=== PATIENT | male | born 1925 | race Caucasian/White ===

== ENCOUNTER 2017-03-12 21:07 | Emergency (ER) | payer MEDICARE, OTHER ==
[2017-03-12] MEDS ORDERED: Labetalol 20 MG/4 ML Syringe IVPUSH ONE ×2 (21:36→22:13)
--- NOTE | 2017-03-12 21:42 | EDM.PDOC ---
ED HPI GENERAL MEDICAL PROBLEM - General Chief Complaint: Headache Stated Complaint: headache,congintive changes Time Seen by Provider: 03/12/17 21:30 Source of Information: Reports: Patient, [facility] Records History Limitations: Reports: No Limitations - History of Present Illness INITIAL COMMENTS - FREE TEXT/NARRATIVE: Patient is a 89-year-old who [facility] [place] [facility] was brought in by private vehicle with history of headache this started around 3 :30 changes in his cognitive he is alert to time and place but states he has had about 6 falls today in one he hit his chest and head at this time patient was taken to CT scan to rule out C acute stroke patient refused transfer to the hospital earlier in the day Onset: Today Duration: Hour(s): Location: Reports: Head Quality: Reports: Throbbing Severity: Moderate Improves with: Reports: None Worsens with: Reports: None Context: Reports: Sick Contact Associated Symptoms: Reports: Confusion (Some confusion) - Related Data Allergies Allergy/AdvReac Type Severity Reaction Status Date / Time alendronate sodium Allergy Muscle Verified 03/11/16 13:28 [From Fosamax] Aches lactose Allergy Stomach Verified 03/11/16 13:28 Upset Penicillins Allergy Blisters Verified 03/11/16 13:28 Home Meds: Home Meds Acetaminophen 500 mg PO TID PRN 03/11/16 [History] Matilde/Cell/Lipas/Malt/Prt/Lac/in [Digestive Enzymes] 1 each PO DAILY PRN 03/11/16 [History] Aspirin 325 mg PO DAILY PRN 03/11/16 [History] Calcium Carbonate/Vitamin D3 [Oyster Shell 250 mg + Vit D] 1 tab PO BID [History] Carboxymethylcellulose Sodium [Refresh Tears] 1 drop EYEBOTH DAILY PRN 03/11/16 [History] Citalopram [Celexa] 10 mg PO DAILY@03/11/16 [History] Dorzolamide HCl/Timolol Maleat [Dorzolamide-Timolol Eye Drops] 1 drop EYERT BID 03/11/16 [History] Eucalyptus Oil/Menthol/Camphor [Vicks Vaporub Ointment] 1 applic TP ASDIRECTED PRN 03/11/16 [History] Finasteride [Proscar] 5 mg PO DAILY@03/11/16 [History] Hydrochlorothiazide 1 tab PO DAILY@03/11/16 [History] Lisinopril [Prinivil] 20 mg PO DAILY@03/11/16 [History] Loperamide [Imodium AD] 2 mg PO ASDIRECTED PRN 03/11/16 [History] Menthol [Fillmore] 7.5 mg MM ASDIRECTED PRN 03/11/16 [History] Metoprolol Tartrate [Lopressor] 50 mg PO Q12HR 03/11/16 [History] Nitroglycerin [Nitrostat] 0.4 mg SL Q5M PRN 03/11/16 [History] Pantoprazole [Protonix] 40 mg PO DAILY@03/11/16 [History] Petrolatum,White [Petroleum Jelly] 1 applic TP ASDIRECTED PRN 03/11/16 [History] Pravastatin Sodium [Pravastatin (Pravachol)] 40 mg PO BEDTIME 03/11/16 [History] Tamsulosin HCl [Flomax] 0.8 mg PO BEDTIME 03/11/16 [History] Warfarin [Coumadin] 2.5 mg PO ASDIRECTED 03/11/16 [History] Warfarin [Coumadin] 5 mg PO ASDIRECTED 03/11/16 [History] amLODIPine [Norvasc] 5 mg PO DAILY@03/11/16 [History] Past Medical History HEENT History: Reports: Hard of Hearing, Impaired Vision, Macular Degeneration Cardiovascular History: Reports: Afib, Angina, CAD, High Cholesterol, Hypertension, [place], Pacemaker Gastrointestinal History: Reports: GERD, Other (See Below) Other Gastrointestinal History: lactose intolerant Genitourinary History: Reports: BPH Musculoskeletal History: Reports: Osteoarthritis Psychiatric History: Reports: Depression Endocrine/Metabolic History: Reports: Diabetes, Type II, Other (See Below) Other Endocrine/Metabolic History: diet controlled Oncologic (Cancer) History: Reports: Non-Hodgkin's Lymphoma, Other (See Below) Other Oncologic History: skin cancer - Past Surgical History Cardiovascular Surgical History: Reports: Other (See Below) Social & Family History - Tobacco Use Smoking Status *Q: Former Smoker ED ROS GENERAL - Review of Systems Review Of Systems: See Below Constitutional: Reports: No Symptoms HEENT: Reports: No Symptoms Respiratory: Reports: No Symptoms Cardiovascular: Reports: No Symptoms, Blood Pressure Problem Endocrine: Reports: No Symptoms GI/Abdominal: Reports: No Symptoms : Reports: No Symptoms Musculoskeletal: Reports: No Symptoms Skin: Reports: No Symptoms Neurological: Reports: Headache Psychiatric: Reports: No Symptoms Hematologic/Lymphatic: Reports: No Symptoms Immunologic: Reports: No Symptoms - Physical Exam Exam: See Below Exam Limited By: Altered Mental Status General Appearance: Alert, WD/WN, Anxious, Moderate Distress Ears: Normal External Exam, Normal Canal, Hearing Grossly Normal, Normal TMs Nose: Normal Inspection Throat/Mouth: Normal Inspection, Normal Lips, Normal Teeth, Normal Gums, Normal Oropharynx, Normal Voice, No Airway Compromise Head Exam: Atraumatic, Normocephalic Neck: Normal Inspection, Supple, Non-Tender, Full Range of Motion Respiratory/Chest: No Respiratory Distress, Lungs Clear, Normal Breath Sounds, No Accessory Muscle Use, Chest Non-Tender Cardiovascular: Normal Peripheral Pulses, Regular Rate, Rhythm, No Edema, No Gallop, No JVD, No Murmur, No Rub GI/Abdominal: Normal Bowel Sounds, Soft, Non-Tender, No Organomegaly, No Distention, No Abnormal Bruit, No Mass (Male) Exam: No Hernia, Normal Inspection, Normal Prostate, Circumcised Rectal (Males) Exam: Normal Exam, Normal Rectal Tone, Prostate Normal Neuro Exam (Abbreviated): Alert, Oriented, CN II-XII Intact, Normal Gait, Normal Reflexes, Slow to Respond, Sensory/Motor Deficit (Fine motor movement impaired patient unable to grab medication and place a mouth) Back Exam: Normal Inspection, Full Range of Motion, NT Extremities: Normal Inspection, Normal Range of Motion, Non-Tender, No Pedal Edema, Normal Capillary Refill Psychiatric: Normal Affect, Normal Mood Skin Exam: Warm, Dry, Intact, Normal Color, No Rash EKG INTERPRETATION EKG Date: 03/12/17 Rhythm: A-Fib Rate (Beats/Min): 63 [place]: LAD-Left [place] Deviation QRS: Normal ST-T: Normal QT: Normal EKG Interpretation Comments: Atrial fibrillation paced Course - Orders/Labs/Meds Orders: Active Orders 24 hr Category Date Time Status Head wo Cont [CT] Stat Exams 03/12/17 21:14 Taken Meds: Medications Discontinued Medications Generic Name Dose Route Start Last Admin Trade Name Freq PRN Reason Stop Dose Admin Labetalol HCl 5 mg 03/12/17 21:36 Normodyne IVPUSH 03/12/17 21:37 ONETIME ONE Protocol Departure - Departure Time of Disposition: 22:27 Disposition: DC/Tfer to Acute Hospital 02 Clinical Impression: Hypertension, Cognitive change - Discharge Information Referrals: Lillian Hillman PA [Primary Care Provider] - Forms: ED Department Discharge Care Plan Goals: Transferred to [facility] - Problem List & Annotations (1) Hypertension SNOMED Code(s): 36128868 Code(s): I10 - ESSENTIAL (PRIMARY) HYPERTENSION Status: Acute Annotation/ Comment:: At this time his blood pressure was elevated at 191 or 90 patient will be given labetalol 5 mg IV now (2) Cognitive change SNOMED Code(s): 019157001 Code(s): R41.89 - OTH SYMPTOMS AND SIGNS W COGNITIVE FUNCTIONS AND AWARENESS Status: Acute Annotation/Comment:: Patient is a 89-year-old who complains of a headache of about 6 or 7 out of 10 this is down from 10 out of 10 we will go ahead and treat his headache Dilaudid 0.5 mg was given IV since he is on multiple medications and anticoagulants like aspirin and warfarin I did not feel comfortable giving him Toradol at this time I will give him Dilaudid 0.5 mg IV sense reason for seening in the ER is possible CVA (3) Cognitive change SNOMED Code(s): 996680145 Code(s): R41.89 - OTH SYMPTOMS AND SIGNS W COGNITIVE FUNCTIONS AND AWARENESS Status: Acute Annotation/Comment:: Patient states he is having a hard time articulating words and thoughts also states he has fine motor coordination deficit unable to grab pills and put him in the mouth - Problem List Review Problem List Initiated/Reviewed/Updated: Yes - My Orders Last 24 Hours: My Active Orders 03/12/17 21:14 Head wo Cont [CT] Stat - Assessment/Plan Last 24 Hours: My Active Orders 03/12/17 21:14 Head wo Cont [CT] Stat Assessment:: Assessment 1 hypertension 2 cognitive changes 3 Rule out CVA Plan: At this time patient will be transferred to [facility] for admission and evaluation discussed with Dr. Gore at the MD and agree on transfer
[2017-03-12 21:51] LABS: CHLORIDE,CL 95 mmol/L (98-107); SODIUM,NA 132 mmol/L (136-145)
[2017-03-12] MEDS ORDERED: HYDROmorphone 1 MG/ML Syringe IVPUSH ONE (22:15)
[2017-03-12] MEDS ORDERED: HYDROmorphone 1 MG/ML Syringe IVPUSH PRN (22:33)
[2017-03-12] MEDS ORDERED: Labetalol 100 MG Tab PO ONE (22:43)
[2017-03-12 22:52] VITALS: BP 176/85
== END 2017-03-12 22:55 ==
LOC: LL.ED 21:07
DX: I10 Essential (primary) hypertension (principal); R41.89 Other symptoms and signs involving cognitive functions and awareness; E11.9 Type 2 diabetes mellitus without complications; Z88.0 Allergy status to penicillin; Z88.8 Allergy status to other drugs, medicaments and biological substances; Z79.82 Long term (current) use of aspirin; Z79.899 Other long term (current) drug therapy; Z87.891 Personal history of nicotine dependence; Z91.011 Allergy to milk products
CPT/HCPCS: 36415; 70450; 71010; 80053; 85025; 85610; 85730; 96374; 96375; 96376; 99285; A9270; J1170

== ENCOUNTER 2017-05-07 11:15 | Emergency (ER) | payer MEDICARE, OTHER ==
[2017-05-07] MEDS ORDERED: Sodium Chloride 0.9% 10 ML Syringe FLUSH PRN (11:20)
--- NOTE | 2017-05-07 11:29 | EDM.PDOC ---
ED HPI GENERAL MEDICAL PROBLEM - General Chief Complaint: Neurological Problem Stated Complaint: lethergy, Confusion Time Seen by Provider: 05/07/17 11:24 Source of Information: Reports: Patient, [facility] Records History Limitations: Reports: Altered Mental Status - History of Present Illness INITIAL COMMENTS - FREE TEXT/NARRATIVE: Patient is a 89-year-old who is seen in the emergency room with acute onset of confusion lethargic and increase weakness(nurses noted slurred speech and weakness. About 5 days ago patient started on gabapentin for neck pain and increased in his antidepressant Onset: Sudden (Today) Duration: Hour(s): Location: Reports: Generalized Severity: Moderate Improves with: Reports: None Worsens with: Reports: None Context: Reports: Other (Possible medication changes) Associated Symptoms: Reports: Confusion, Weakness - Related Data Allergies Allergy/AdvReac Type Severity Reaction Status Date / Time alendronate sodium Allergy Muscle Verified 05/07/17 11:36 [From Fosamax] Aches lactose Allergy Stomach Verified 05/07/17 11:36 Upset Penicillins Allergy Blisters Verified 05/07/17 11:36 Home Meds: Home Meds Acetaminophen 500 mg PO TID PRN 03/11/16 [History] Matilde/Cell/Lipas/Malt/Prt/Lac/in [Digestive Enzymes] 1 each PO DAILY PRN 03/11/16 [History] Aspirin 325 mg PO DAILY PRN 03/11/16 [History] Calcium Carbonate/Vitamin D3 [Oyster Shell 250 mg + Vit D] 1 tab PO BID [History] Carboxymethylcellulose Sodium [Refresh Tears] 1 drop EYEBOTH DAILY PRN 03/11/16 [History] Citalopram [Celexa] 10 mg PO DAILY@03/11/16 [History] Dorzolamide HCl/Timolol Maleat [Dorzolamide-Timolol Eye Drops] 1 drop EYERT BID 03/11/16 [History] Eucalyptus Oil/Menthol/Camphor [Vicks Vaporub Ointment] 1 applic TP ASDIRECTED PRN 03/11/16 [History] Finasteride [Proscar] 5 mg PO DAILY@03/11/16 [History] Lisinopril [Prinivil] 20 mg PO DAILY@03/11/16 [History] Loperamide [Imodium AD] 2 mg PO ASDIRECTED PRN 03/11/16 [History] Metoprolol Tartrate [Lopressor] 50 mg PO Q12HR 03/11/16 [History] Nitroglycerin [Nitrostat] 0.4 mg SL Q5M PRN 03/11/16 [History] Tamsulosin HCl [Flomax] 0.8 mg PO BEDTIME 03/11/16 [History] Warfarin [Coumadin] 2.5 mg PO ASDIRECTED 03/11/16 [History] Warfarin [Coumadin] 5 mg PO ASDIRECTED 03/11/16 [History] amLODIPine [Norvasc] 5 mg PO DAILY@06 03/11/16 [History] Acetaminophen [Tylenol Arthritis] 650 mg PO BID@0600,1700 05/07/17 [History] Acetaminophen [Tylenol] 650 mg PO Q4HR PRN 05/07/17 [History] Albuterol/Ipratropium [DuoNeb 3.0-0.5 MG/3 ML] 3 ml INH Q4HR PRN 05/07/17 [ History] Aspirin [Halfprin] 81 mg PO DAILY@0605/07/17 [History] Brimonidine Tartrate [Brimonidine Tartrate 0.2% Ophth Soln] 1 drop EYEBOTH BID@ 0600,169905/07/17 [History] Cyanocobalamin (Vitamin B12) [Vitamin B12] 500 mcg PO DAILY@0605/07/17 [ History] Docusate Sodium [Colace] 100 mg PO BID@0600,17005/07/17 [History] Eucalyptus/Menthol [Cough Drops] 1 each PO ASDIRECTED PRN 05/07/17 [History] Furosemide [Lasix] 20 mg PO DAILY@0605/07/17 [History] Latanoprost [Xalatan 0.005% Ophth Soln] 1 drop EYEBOTH BEDTIME 05/07/17 [History ] Menthol [Biofreeze] 1 applic TOP ASDIRECTED PRN 05/07/17 [History] Omeprazole 40 mg PO DAILY@0600 05/07/17 [History] Polyethylene Glycol 3350 [MiraLAX] 17 gm PO DAILY PRN 05/07/17 [History] Sodium Chloride 1 gm PO BID@0600,1700 05/07/17 [History] Timolol Maleate [Timoptic 0.5% Ophth Soln] 1 drop EYEBOTH BID@0600,1700 [History] Tolnaftate [Antifungal Cream] 1 applic TOP BID PRN 05/07/17 [History] Past Medical History HEENT History: Reports: Hard of Hearing, Impaired Vision, Macular Degeneration Cardiovascular History: Reports: Afib, Angina, CAD, High Cholesterol, Hypertension, [place], Pacemaker Gastrointestinal History: Reports: GERD, Other (See Below) Other Gastrointestinal History: lactose intolerant Genitourinary History: Reports: BPH Musculoskeletal History: Reports: Osteoarthritis Psychiatric History: Reports: Depression Endocrine/Metabolic History: Reports: Diabetes, Type II, Other (See Below) Other Endocrine/Metabolic History: diet controlled Oncologic (Cancer) History: Reports: Non-Hodgkin's Lymphoma, Other (See Below) Other Oncologic History: skin cancer - Past Surgical History Cardiovascular Surgical History: Reports: Other (See Below) Social & Family History - Tobacco Use Smoking Status *Q: Former Smoker ED ROS GENERAL - Review of Systems Review Of Systems: See Below Constitutional: Reports: Weakness HEENT: Reports: No Symptoms Respiratory: Reports: No Symptoms Cardiovascular: Reports: No Symptoms Endocrine: Reports: No Symptoms GI/Abdominal: Reports: No Symptoms : Reports: No Symptoms Skin: Reports: No Symptoms Neurological: Reports: Confusion, Weakness Psychiatric: Reports: Confusion Hematologic/Lymphatic: Reports: No Symptoms Immunologic: Reports: No Symptoms ED EXAM, GENERAL - Physical Exam Exam: See Below Exam Limited By: Altered Mental Status (According to transfer records) General Appearance: Alert, WD/WN, No Apparent Distress Eye Exam: Bilateral Eye: EOMI, PERRL Ears: Normal External Exam Ear Exam: Bilateral Ear: Auricle Normal, Canal Normal, TM normal Nose: Normal Inspection, Normal Mucosa, No Blood Throat/Mouth: Normal Inspection, Normal Lips, Normal Teeth, Normal Gums, Normal Oropharynx, Normal Voice, No Airway Compromise Head: Atraumatic, Normocephalic Neck: Normal Inspection, Supple, Non-Tender, Full Range of Motion Respiratory/Chest: No Respiratory Distress, Lungs Clear, Normal Breath Sounds, No Accessory Muscle Use, Chest Non-Tender Cardiovascular: Normal Peripheral Pulses, Regular Rate, Rhythm, No Edema, No Gallop, No JVD, No Murmur, No Rub GI/Abdominal: Normal Bowel Sounds, Soft, Non-Tender, No Organomegaly, No Distention, No Abnormal Bruit, No Mass (Male) Exam: Deferred Rectal (Males) Exam: Deferred Back Exam: Normal Inspection, Full Range of Motion, NT Extremities: Normal Inspection, Normal Range of Motion, Non-Tender, Normal Capillary Refill, No Pedal Edema Neurological: Alert, CN II-XII Intact, Normal Reflexes, Disoriented, Slow to Respond. No: Oriented, Normal Cognition, Sensory/Motor Deficit Psychiatric: Flat Affect Skin Exam: Warm, Dry, Intact, Normal Color, No Rash Lymphatic: No Adenopathy Course - Orders/Labs/Meds Orders: Active Orders 24 hr Category Date Time Status EKG Documentation Completion [RC] ASDIRECTED Care 05/07/17 11:18 Active Chest 1V Frontal [CR] Stat Exams 05/07/17 11:19 Ordered Head wo Cont [CT] Stat Exams 05/07/17 11:19 Ordered CBC WITH AUTO DIFF [HEME] Stat Lab 05/07/17 11:18 Ordered CMP [COMPREHENSIVE METABOLIC PN,CMP] [CHEM] Stat Lab 05/07/17 11:18 Ordered UA W/MICROSCOPIC [URIN] Stat Lab 05/07/17 11:19 Uncollected Sodium Chloride 0.9% [Saline Flush] Med 05/07/17 11:20 Active 10 ml FLUSH ASDIRECTED PRN Saline Lock Insert [OM.PC] Routine Oth 05/07/17 11:20 Ordered Medication Orders Sodium Chloride (Saline Flush) 10 ml FLUSH ASDIRECTED PRN PRN Reason: Keep Vein Open Meds: Medications Generic Name Dose Route Start Last Admin Trade Name Freq PRN Reason Stop Dose Admin Sodium Chloride 10 ml 05/07/17 11:20 Saline Flush FLUSH ASDIRECTED PRN Keep Vein Open Departure - Departure Time of Disposition: 12:13 Disposition: Home, Self-Care 01 Condition: Fair Clinical Impression: Adverse drug reaction Qualifiers: Encounter type: initial encounter Qualified Code(s): T88.7XXA - Unspecified adverse effect of drug or medicament, initial encounter - Discharge Information Referrals: Jesica Reynolds MD [Primary Care Provider] - Care Plan Goals: At this time we'll send him back home discontinue his gabapentin check his blood sugars daily. Repeat BMP in a week encourage oral hydration creatinine is 1.2 to follow-up with primary in a week if not better CT of the head negative for fractures or intracranial bleed no acute changes - My Orders Last 24 Hours: My Active Orders 05/07/17 11:18 EKG Documentation Completion [RC] ASDIRECTED CBC WITH AUTO DIFF [HEME] Stat CMP [COMPREHENSIVE METABOLIC PN,CMP] [CHEM] Stat 05/07/17 11:19 Chest 1V Frontal [CR] Stat Head wo Cont [CT] Stat UA W/MICROSCOPIC [URIN] Stat 05/07/17 11:20 Sodium Chloride 0.9% [Saline Flush] 10 ml FLUSH ASDIRECTED PRN Saline Lock Insert [OM.PC] Routine - Assessment/Plan Last 24 Hours: My Active Orders 05/07/17 11:18 EKG Documentation Completion [RC] ASDIRECTED CBC WITH AUTO DIFF [HEME] Stat CMP [COMPREHENSIVE METABOLIC PN,CMP] [CHEM] Stat 05/07/17 11:19 Chest 1V Frontal [CR] Stat Head wo Cont [CT] Stat UA W/MICROSCOPIC [URIN] Stat 05/07/17 11:20 Sodium Chloride 0.9% [Saline Flush] 10 ml FLUSH ASDIRECTED PRN Saline Lock Insert [OM.PC] Routine
[2017-05-07 11:45] LABS: CHLORIDE,CL 100 mmol/L (98-107); SODIUM,NA 136 mmol/L (136-145)
[2017-05-07 12:26] VITALS: BP 151/72
== END 2017-05-07 13:15 | disposition home or self-care (01) ==
LOC: LL.ED 11:15
DX: R53.83 Other fatigue (principal); T42.6X5A Adverse effect of other antiepileptic and sedative-hypnotic drugs, initial encounter; F32.9 Major depressive disorder, single episode, unspecified; E78.00 Pure hypercholesterolemia, unspecified; I10 Essential (primary) hypertension; E11.9 Type 2 diabetes mellitus without complications; Z88.0 Allergy status to penicillin; Z91.011 Allergy to milk products; Z79.82 Long term (current) use of aspirin; Z79.899 Other long term (current) drug therapy; Z79.01 Long term (current) use of anticoagulants; Z87.891 Personal history of nicotine dependence
CPT/HCPCS: 36000; 36415; 70450; 71045; 80053; 85025; 93005; 99284; 99285

== ENCOUNTER 2017-05-21 09:40 | Emergency (ER) | END 2017-05-21 11:15 | DX: I63.9 Cerebral infarction, unspecified (principal); I44.0 Atrioventricular block, first degree; I11.0 Hypertensive heart disease with heart failure; I50.23 Acute on chronic systolic (congestive) heart failure; R79.1 Abnormal coagulation profile; I25.10 Atherosclerotic heart disease of native coronary artery without angina pectoris; I48.2 Chronic atrial fibrillation; M15.0 Primary generalized (osteo)arthritis; J44.9 Chronic obstructive pulmonary disease, unspecified; I25.2 Old myocardial infarction; E11.9 Type 2 diabetes mellitus without complications; Z88.8 Allergy status to other drugs, medicaments and biological substances; Z88.0 Allergy status to penicillin; Z79.899 Other long term (current) drug therapy; Z79.82 Long term (current) use of aspirin; Z87.891 Personal history of nicotine dependence | CPT/HCPCS: 36415; 70450; 71045; 80053; 82550; 82553; 83605; 83735; 83880; 84146; 84443; 84484; 84550; 85025; 85379; 85610; 85730; 93005; 96374; 99285; J7050 ==